=== PATIENT | male | born 2000 | race Caucasian/White ===

== ENCOUNTER 2023-05-05 16:20 | Emergency (ER) | payer OTHER ==
[~2023-05-05] VITALS: Ht 182.9 cm; Wt 97.5 kg
--- NOTE | 2023-05-05 16:42 | ED Upper Extremity ---
General Chief Complaint: Upper Extremity Stated Complaint: RIGHT INDEX/MIDDLE FINGER CRUSH INJURY Source: patient Exam Limitations: no limitations (RAJWINDER FORD) History of Present Illness Date Seen by Provider: May 05, 2023 Time Seen by Provider: 16:40 Initial Comments Patient is a 22-year-old male who presents ED with a injury to his right index and middle finger. Patient states a 200 pound flagpole came down crushing his finger against the ground. This occurred 30 minutes ago. patient did not have gloves on at the time. Reports a laceration on the palmar side of his right index finger and a wound to his right middle finger. Grossly contaminated with mud. He states he is able to flex and extend. Not up-to-date on his tetanus. Reports distal numbness and tingling of his right index finger (RAJWINDER FORD) Allergies and Home Medications Allergies Coded Allergies: No Known Drug Allergies (Unverified , 05/05/23) Patient Home Medication List Home Medication List Reviewed: Yes (RAJWINDER FORD) Cephalexin (Cephalexin) 500 Mg Tablet, 500 MG PO QID Prescribed by: DARCIE JOHN on 05/05/231855 Oxycodone HCl/Acetaminophen (Percocet 5-325 mg Tablet) 1 Each Tablet, 1 TAB PO Q4H PRN for PAIN-MODERATE (5-7) Prescribed by: DARCIE JOHN on 05/05/231856 Review of Systems Constitutional: No chills, No diaphoresis EENTM: No ear pain, No blurred vision, No double vision Respiratory: No cough, No dyspnea on exertion Cardiovascular: No chest pain Gastrointestinal: No abdominal pain, No diarrhea, No nausea, No vomiting Genitourinary: No decreased output, No discharge Musculoskeletal: joint pain, muscle pain Skin: change in color, other (laceration) (RAJWINDER FORD) All Other Systems Reviewed Negative Unless Noted: Yes (RAJWINDER FORD) Physical Exam Vital Signs Vital Signs - First Documented 05/05/23 16:33 Temp 36.8 Pulse 91 Resp 18 B/P (MAP) 113/78 (90) Pulse Ox 98 O2 Delivery Room Air (DARCIE LEON MD) Vital Signs Capillary Refill : (RAJWINDER FORD) Height, Weight, BMI Height: '" Weight: lbs. oz. kg; BMI Method: General Appearance: WD/WN, no apparent distress HEENT: PERRL/EOMI, normal ENT inspection, TMs normal, pharynx normal Neck: non-tender, full range of motion, supple Cardiovascular: regular rate, rhythm, no edema, no gallop, no JVD Respiratory: chest non-tender, lungs clear, normal breath sounds, no respiratory distress, no accessory muscle use Gastrointestinal: normal bowel sounds, non tender, soft, no organomegaly Back: normal inspection, no CVA tenderness, no vertebral tenderness Elbow/Forearm: normal inspection, non-tender, Right Wrist: Yes normal inspection, Yes non-tender Hand: Right, laceration (4 cm vertical laceration to the right palmar index finger. 1 cm laceration to the right palmar middle finger.) Neurologic/Psychiatric: drill press tender II-XII nml as tested, no motor/sensory deficits, alert, normal mood/affect, oriented x 3 Skin: other (4 cm laceration of the right de la torre index finger) (RAJWINDER FORD) Procedures/Interventions Wound Location: Upper Extremities Other Wound Location right index finger Wound Length (cm): 2.5 Wound's Depth, Shape: superficial, sub Q Wound Explored: contaminated Irrigated w/ Saline (ccs): 3000 Betadine Prep?: Yes Anesthesia: 1% Lidocaine Volume Anesthetic (ccs): 6 Suture: Ethlion Suture Size: 4-0 Number of Sutures: 9 Layer Closure?: 1 Sterile Dressing Applied?: Yes (RAJWINDER FORD) Progress/Results/Core Measures Results/Orders My Orders Orders - DARCIE LEON MD Oxycodone/Apap 5/325mg Tablet (Oxycodon (05/05/23 19:00) Rx-Oxycodone/Apap 5-325 Mg (Rx-Percocet (05/05/23 19:00) Rx-Cephalexin Capsule (Rx-Keflex Capsule (05/05/23 18:58) (DARCIE LEON MD) Medications Given in ED (DARCIE LEON MD) Vital Signs/I&O (DARCIE LEON MD) Departure Communication (PCP) Patient presents the ED with a crush injury to his right index and middle f timothy. Mud and chemical contamination. Flexion extension intact of the right index and middle finger. Vertical laceration from the tip of the right index finger to the distal MCP joint. Tendon exposed. Contaminated wound. Multiple abrasions to the right middle finger. Extensive irrigation with near 3000 mls of normal saline and Shur cleans. Explored the wound with removal of some radiopaque objects. X-ray was performed which shows a possible tiny avulsion fracture along the distal tip of the right second digit distal phalanx. Scattered subcentimeter radiopaque within the distal second and third soft tissue. Likely foreign body. Patient did receive 2 g of Ancef. Updated his tetanus. Patient was discussed with Dr. John who examined the patient and help assist care. Dr. John contacted Dr. Mcneil hand specialist at [place] and patient will be evaluated tomorrow. Recommend applying sutures loosely over the right index finger. Nine 4-0 Ethilon sutures were placed loosely after extensive irrigation and exploratory of the wound. Radiopaque objects were found and removed. Patient will likely go to the OR tomorrow. Patient will be started on Keflex. Patient was given pain medication. Digital block was performed and pain improved and controlled. Wound care was performed and discusses. Applied dressing and tube gauze (RAJWINDER FORD) Impression Primary Impression: Crushing injury of right hand Qualified Codes: S67.21XA - Crushing injury of right hand, initial encounter Additional Impressions: Laceration of finger Qualified Codes: S61.320A - Laceration with foreign body of right index finger with damage to nail, initial encounter Open wound with foreign body Disposition: HOME, SELF-CARE Condition: Stable Departure-Patient Inst. Decision time for Depature: 18:50 (DARCIE LEON MD) Patient Instructions: Wound Care ED, Crush Injury (DC) Add. Discharge Instructions: Keep your hand elevated at or above the level of your heart is much as possible to reduce swelling. Take the Keflex antibiotic provided every 6 hours until you stop eating and drinking at midnight. You may take the Percocet pain medication provided from the ER every 3 hours as needed for pain control. Light icing and 20-minute intervals may also help with pain and swelling. Leave the dressing intact until you see Dr. Mcneil tomorrow morning. Do not eat or drink anything after midnight. Dr. Mcneil may recommend surgery immediately after your consultation, and it is necessary to have an empty stomach in preparation for surgery. Please present to the office of Dr. Brock Mcneil in [place] at 8:00 in the morning. His address is: [address] [place] [address], [id number] [place], [place] [address] [phone] Return to the emergency room if you have complications or uncontrolled pain in the meantime. Further antibiotics and pain medications have been sent to the [facility] and can be filled tomorrow. All discharge instructions reviewed with patient and/or family. Voiced understanding. Scripts Cephalexin (Cephalexin) 500 Mg Tablet 500 MG PO QID, #40 TAB Prov: DARCIE LEON MD 05/05/23 Oxycodone HCl/Acetaminophen (Percocet 5-325 mg Tablet) 1 Each Tablet 1 TAB PO Q4H PRN for PAIN-MODERATE (5-7) MDD 6 TABS, #20 TAB Prov: DARCIE LEON MD 05/05/23 ATTENDING PHYSICIAN NOTE: I was physically present as attending physician in the emergency department during the care of this patient. WINIFRED Padron consulted me on this case. I reviewed the x-rays. Tuft fracture was appreciated on my interpretation along with soft tissue injury with extensive radiopaque debris within the laceration. Radiologist report was also reviewed. I personally examined this patient and found a very deep laceration on the distal two thirds of the palmar aspect of the right index finger as well as other minor wounds on other fingers. Foreign bodies could be seen within the wound. Wound was very deep and foreign bodies were noted nearly to the level of bone on x-ray. Amazingly, the patient retained nearly full flexion and extension. He retains sensation and capillary refill in the tip of his finger. I spoke with Dr. Monsalve, trauma surgeon on- call regarding this wound. He is deferring to orthopedics and preferably a hand surgeon for further management. I discussed the case with Dr. Vegas, orthopedic surgeon direct support professional. He did offer to evaluate the patient and possibly perform debridement and wound management in the OR. However, he was concerned that the patient may need further referral to a hand specialist for additional surgical management and postoperative care. Based on these discussions, it was discerned that it was best to pursue definitive management with a hand surgeon now. I was able to speak with Dr. Mcneil, surgeon on-call for hand at [place]. He was very helpful and his help was appreciated. He recommended providing a longer term digital block with Marcaine, thorough irrigation and debridement of obvious foreign bodies, loose closure, antibiotic therapy, and pain management. He plans to see the patient at 0800 in the morning. He instructs patient to remain n.p.o. as he is likely to go to the OR from the clinic visit. Plan was discussed with patient, work tan room supervisor who was present in the exam room, and the [employer] occupational doctor, Dr. Hunt ([phone]) who agreed with this plan. Patient expressed understanding of the plan. Glenroy Ford provided further wound care after reviewing these recommendations from Dr. Mcneil. D igital block, debridement, irrigation, and loose closure was performed by Mr. Ford. Patient declined the additional digital block with marcaine. I assisted with medication orders and discharge instructions during my involvement in this case. (DARCIE LEON MD) RAJWINDER FORD May 05, 2023 16:42 DARCIE LEON MD May 05, 2023 18:55
[2023-05-05] MEDS ORDERED: LIDOCAINE 1% INJ 10 ML VIAL INJ ONE (16:45)
[2023-05-05] MEDS ORDERED: Tetanus/Diphtheria/Pertussis (Acell) ADULT Vaccine 0.5 ML IM ONE (16:45)
[2023-05-05] MEDS ORDERED: LIDOCAINE 1% INJ 20 ML VIAL INJ ONE (16:45)
[2023-05-05] MEDS ORDERED: ceFAZolin INJECTION 2,000 MG in NS (IVPB) 50 ML 50 ML IV ONE (16:45)
--- NOTE | 2023-05-05 17:13 | Diagnostic Imaging Report ---
EXAMINATION: Right hand radiograph EXAM DATE: 05/05/2023 5:05 PM COMPARISON: None available. HISTORY: index and middle finger pain TECHNIQUE: Three views FINDINGS: There may be a tiny avulsion fracture along the distal tip of the second digit distal phalanx. No other dislocation or destructive osseous process. The joint spaces are normal. There are scattered radiopacities seen within the soft tissues of the distal second and third digit. IMPRESSION: 1. Possible tiny avulsion fracture along the distal tip of the right second digit distal phalanx. 2. Scattered subcentimeter radiopacities within the distal second and third digit soft tissues which may be related to foreign bodies from recent injury. Dictated by: Dictated on workstation # [id number]
[2023-05-05] MEDS ORDERED: OXYC1TAB87 PO (18:56)
[2023-05-05] MEDS ORDERED: CEPH500T PO (18:56)
[2023-05-05] MEDS ORDERED: RX-CEPHALEXIN (KEFLEX) 250 MG CAP PPK#4 PO STA (18:58)
[2023-05-05] MEDS ORDERED: oxyCODONE/ACETAMINOPHEN 5/325MG TABLET PO ONE (19:00)
[2023-05-05] MEDS ORDERED: RX-OXYCODONE/APAP 5-325 MG #4 TAB PK PO PRN (19:00)
[2023-05-05 19:36] VITALS: BP 117/73
== END 2023-05-05 19:36 | disposition home or self-care (01) ==
LOC: ER 16:23
DX: S61.320A Laceration with foreign body of right index finger with damage to nail, initial encounter (principal); Z23 Encounter for immunization; W23.2XXA Caught, crushed, jammed or pinched between a moving and stationary object, initial encounter
CPT/HCPCS: 12001; 73130; 90715